=== PATIENT | male | born 2000 | race African-American/Black ===

== ENCOUNTER 2020-03-26 13:29 | Emergency (ER) | payer MEDICAID, OTHER ==
--- NOTE | 2020-03-26 14:52 | RAD ---
RIGHT ELBOW: 03/26/20 Four views. HISTORY: Injury. No fracture. No evidence of joint effusion. IMPRESSION: No acute findings. POS: OFF
== END 2020-03-26 15:47 | disposition home or self-care (01) ==
LOC: ERS 13:29
DX: M25.521 Pain in right elbow (principal); F90.9 Attention-deficit hyperactivity disorder, unspecified type; V64.6XXA Passenger in heavy transport vehicle injured in collision with heavy transport vehicle or bus in traffic accident, initial encounter

== ENCOUNTER 2021-01-29 22:03 | Inpatient (IN) | payer MEDICAID, SELFPAY ==
[2021-01-29] MEDS ORDERED: CEFAZOLIN 1 GM VIAL ONE ×2 (22:07→22:12)
[2021-01-29] MEDS ORDERED: Boostrix 0.5 ML (Tdap) VIAL ONE (22:20)
[2021-01-29] MEDS ORDERED: Morphine 4 MG/ML VIAL ONE ×2 (22:35→23:24)
[2021-01-29 22:36] LABS: #Basophils 0.1 thou/uL (0.0-0.2); #Eosinphils 0.2 thou/uL (0.0-0.7); #Lymphocytes 5.3 thou/uL (1.20-3.40); #Monocytes 1.1 thou/uL (0.11-0.59); #Neutrophils 4.2 thou/uL (1.40-6.50); %Basophils 1.1 % (0.0-1.0); %Eosinophils 1.9 % (0.0-10.0); %Lymphocytes 48.7 % (21.0-51.0); %Monocytes 9.9 % (0.0-10.0); %Neutrophils 38.4 % (42.0-75.0); Hemoglobin 15.4 g/dL (14.0-18.0); Mean Corpuscular HGB CONC 34.2 g/dL (32.0-36.0); Mean Corpuscular Hemoglobin 28.5 pg (27.0-31.0); Mean Corpuscular Volume 83.2 fL (78.0-98.0); Mean Platelet Volume 8.6 fL (7.4-10.4); Platelet Count 239 thou/uL (130-400); RBC Distribution Width 12.4 % (11.5-14.5); White Blood Cell (WBC) Count 10.8 thou/uL (4.8-10.8)
[2021-01-29 22:47] LABS: PTT 26.7 sec (22.9-36.1); Prothrombin Time 13.2 sec (12.0-14.7)
[2021-01-29 22:56] LABS: ALT (SGPT) 14 U/L (8-55); AST (SGOT) 17 U/L (5-34); Albumin 4.8 g/dL (3.5-5.0); Alkaline Phosphatase 84 U/L (40-110); Anion Gap 16 mmol/L (10-20); BUN (Urea Nitrogen) 8 mg/dL (8.9-20.6); Bilirubin, Total 0.7 mg/dL (0.2-1.2); Calc. Creatinine Clearance 0 mL/min (70-130); Calcium 9.7 mg/dL (7.8-10.44); Carbon Dioxide 25 mmol/L (22-29); Chloride 102 mmol/L (98-107); Globulin 3.3 g/dL (2.4-3.5); Glucose 107 mg/dL (70-105); Potassium 3.8 mmol/L (3.5-5.1); Protein, Total 8.1 g/dL (6.0-8.3); Sodium 139 mmol/L (136-145)
[2021-01-29] MEDS ORDERED: Dextrose 50% Abboject 50 ML SYRINGE SLOW IVP PRN (23:03)
[2021-01-29] MEDS ORDERED: hydrALAZINE 20 MG/ML VIAL SLOW IVP PRN (23:03)
[2021-01-29] MEDS ORDERED: Dextrose 5% in Water 1,000 ML IV PRN (23:03)
[2021-01-29] MEDS ORDERED: Ondansetron PF 4 MG/2 ML Vial IVP PRN (23:03)
[2021-01-29] MEDS ORDERED: traMADol HCl 50 MG TAB PO PRN (23:08)
[2021-01-29] MEDS ORDERED: Cyclobenzaprine 10 MG TAB PO PRN (23:08)
[2021-01-29] MEDS ORDERED: Acetaminophen 500 MG TAB ONE (23:25)
[2021-01-30] MEDS ORDERED: Tranexamic Acid 1,000 MG/10 ML VIAL ONE (00:02)
[2021-01-30 00:13] LABS: SARS-CoV-2 NAA Rapid Test Not Detected (NotDetected)
[2021-01-30] MEDS ORDERED: Lidocaine 1% w/Epinephrine 1:100K 20 ML VIAL ONE (00:28)
[2021-01-30] MEDS: Acetaminophen 500 MG TAB PO SCH ×4 (01:13→18:27)
[2021-01-30] MEDS: Morphine 4 MG/ML VIAL SLOW IVP PRN ×2 (01:14→05:00)
[2021-01-30] MEDS: Sodium Chloride 0.9% 1,000 ML IV SCH ×3 (01:20→18:03)
[2021-01-30 02:15] VITALS: BMI 23.1
[2021-01-30 02:49] LABS: Amphetamine Not Detected (NotDetected); Barbiturates Screen Not Detected (NotDetected); Benzodiazepine Screen Not Detected (NotDetected); Cocaine Metabolite Screen Not Detected (NotDetected); Methadone Not Detected (NotDetected); Methamphetamine Not Detected (NotDetected); Opiate Screen Detected (NotDetected); Oxycodone Screen Not Detected (NotDetected); Phencyclidine (PCP) Not Detected (NotDetected); THC/Cannabinoid Screen Detected (NotDetected); Tricyclic Screen Not Detected (NotDetected)
[2021-01-30] MEDS: ceFAZolin Sodium/D5W 2 GM in Premix Bag 1 BAG IVPB SCH ×3 (04:59→22:00)
[2021-01-30 06:28] LABS: #Eosinphils 0.1 thou/uL (0.0-0.7); #Lymphocytes 2.1 thou/uL (1.20-3.40); #Monocytes 1.1 thou/uL (0.11-0.59); #Neutrophils 6.1 thou/uL (1.40-6.50); %Basophils 0.5 % (0.0-1.0); %Eosinophils 0.8 % (0.0-10.0); %Lymphocytes 22.8 % (21.0-51.0); %Monocytes 11.3 % (0.0-10.0); %Neutrophils 64.6 % (42.0-75.0); Mean Corpuscular Hemoglobin 27.4 pg (27.0-31.0); Mean Corpuscular Volume 83.1 fL (78.0-98.0); Mean Platelet Volume 8.8 fL (7.4-10.4); Platelet Count 184 thou/uL (130-400); RBC Distribution Width 12.3 % (11.5-14.5); Red Blood Cell (RBC) Count 4.74 mill/uL (4.70-6.10); White Blood Cell (WBC) Count 9.4 thou/uL (4.8-10.8)
[2021-01-30 06:48] LABS: Anion Gap 14 mmol/L (10-20); BUN (Urea Nitrogen) 7 mg/dL (8.9-20.6); Calc. Creatinine Clearance 131 mL/min (70-130); Carbon Dioxide 25 mmol/L (22-29); Chloride 104 mmol/L (98-107); Glucose 100 mg/dL (70-105); Magnesium 1.8 mg/dL (1.6-2.6); Phosphorus 4.4 mg/dL (2.3-4.7); Sodium 139 mmol/L (136-145)
[2021-01-30] MEDS ORDERED: Clindamycin/D5W 900 MG in Premix Bag 1 BAG IVPB SCH (08:45)
[2021-01-30] MEDS ORDERED: Famotidine 20 MG TAB PO SCH (09:00)
[2021-01-30] MEDS ORDERED: Clindamycin/D5W 900 mg/50 ml Premix Bag ONE (09:11)
[2021-01-30] MEDS ORDERED: Fentanyl 250 MCG/5 ML VIAL ONE (10:33)
[2021-01-30] MEDS ORDERED: Mineral Oil Sterile 10 ML VIAL ONE (10:35)
[2021-01-30] MEDS ORDERED: Lidocaine 1% PF 5 ML VIAL ONE (11:09)
[2021-01-30] MEDS ORDERED: PROPOFOL 200 MG/20 ML VIAL ONE (11:09)
[2021-01-30] MEDS ORDERED: Ketorolac Tromethamine 30 MG/ML VIAL ONE (11:09)
[2021-01-30] MEDS ORDERED: Dexamethasone 20 MG/5 ML VIAL ONE (11:09)
[2021-01-30] MEDS ORDERED: Ondansetron PF 4 MG/2 ML Vial ONE (11:09)
[2021-01-30] MEDS ORDERED: HYDROmorphone 2 MG/ML VIAL SLOW IVP PRN (13:00)
[2021-01-30] MEDS ORDERED: Promethazine HCl 25 MG/ML VIAL IVPB PRN (13:00)
[2021-01-30] MEDS ORDERED: Meperidine HCl/PF 25 MG/ML VIAL SLOW IVP PRN (13:00)
[2021-01-30] MEDS ORDERED: Promethazine HCl 25 MG/ML VIAL IM PRN (13:00)
[2021-01-30] MEDS ORDERED: Ondansetron HCl/PF 4 MG/2 ML Vial IVP PRN (13:00)
[2021-01-30] MEDS ORDERED: Meperidine HCl/PF 25 MG/ML VIAL ONE (13:01)
[2021-01-30] MEDS ORDERED: Fentanyl 100 MCG/2 ML VIAL ONE (13:08)
[2021-01-30] MEDS ORDERED: Promethazine HCl 25 MG/ML VIAL ONE (13:18)
[2021-01-30] MEDS ORDERED: HYDROmorphone 0.5 MG/0.5 ML SYRINGE ONE ×2 (13:23→13:39)
[2021-01-30] MEDS ORDERED: CEFAZOLIN 2 GM in Premix Bag 1 BAG IVPB SCH (14:00)
[2021-01-30] MEDS: traMADol HCl 50 MG TAB PO PRN (14:48)
[2021-01-30] MEDS: Gabapentin 300 MG CAP PO SCH ×3 (14:49→22:00)
[2021-01-30] MEDS: Polyethylene Glycol 3350 17 GM Packet PO SCH (14:57)
[2021-01-30] MEDS: Senokot S 8.6-50 MG TAB PO SCH ×2 (14:57→22:00)
[2021-01-31] MEDS: Acetaminophen 500 MG TAB PO SCH ×4 (00:07→18:28)
[2021-01-31] MEDS: Morphine 4 MG/ML VIAL SLOW IVP PRN (00:07)
[2021-01-31] MEDS: ceFAZolin Sodium/D5W 2 GM in Premix Bag 1 BAG IVPB SCH (04:59)
[2021-01-31 06:05] LABS: #Lymphocytes 1.8 thou/uL (1.20-3.40); #Monocytes 1.1 thou/uL (0.11-0.59); %Basophils 0.2 % (0.0-1.0); %Eosinophils 0.1 % (0.0-10.0); %Lymphocytes 16.5 % (21.0-51.0); %Monocytes 10.3 % (0.0-10.0); %Neutrophils 72.9 % (42.0-75.0); Hemoglobin 11.2 g/dL (14.0-18.0); Mean Corpuscular HGB CONC 33.1 g/dL (32.0-36.0); Mean Corpuscular Hemoglobin 27.5 pg (27.0-31.0); Mean Corpuscular Volume 82.9 fL (78.0-98.0); Mean Platelet Volume 8.7 fL (7.4-10.4); Platelet Count 174 thou/uL (130-400); RBC Distribution Width 12.2 % (11.5-14.5); Red Blood Cell (RBC) Count 4.08 mill/uL (4.70-6.10); White Blood Cell (WBC) Count 10.9 thou/uL (4.8-10.8)
[2021-01-31 06:22] LABS: Anion Gap 11 mmol/L (10-20); BUN (Urea Nitrogen) 7 mg/dL (8.9-20.6); Calc. Creatinine Clearance 145 mL/min (70-130); Calcium 9.4 mg/dL (7.8-10.44); Carbon Dioxide 27 mmol/L (22-29); Chloride 103 mmol/L (98-107); Glucose 143 mg/dL (70-105); Magnesium 1.9 mg/dL (1.6-2.6); Phosphorus 4.6 mg/dL (2.3-4.7); Potassium 4.3 mmol/L (3.5-5.1); Sodium 137 mmol/L (136-145)
[2021-01-31] MEDS: traMADol HCl 50 MG TAB PO PRN (09:30)
[2021-01-31] MEDS: Gabapentin 300 MG CAP PO SCH ×3 (09:31→21:04)
[2021-01-31] MEDS: Senokot S 8.6-50 MG TAB PO SCH ×2 (09:34→21:04)
[2021-01-31] MEDS: Polyethylene Glycol 3350 17 GM Packet PO SCH (09:34)
[2021-01-31] MEDS ORDERED: traMADol HCl 50 MG TAB PO SCH (11:00)
[2021-01-31] MEDS ORDERED: Ibuprofen 200 MG TAB PO SCH (11:00)
[2021-01-31] MEDS ORDERED: Magnesium 2 GM/50 ML 2 GM in Premix Bag 1 BAG IVPB SCH (12:15)
[2021-01-31] MEDS: traMADol HCl 50 MG TAB PO SCH ×2 (15:50→21:01)
[2021-01-31] MEDS: Ibuprofen 200 MG TAB PO SCH (21:03)
[2021-02-01] MEDS: Enoxaparin Sodium 30 MG/0.3 ML SYRINGE SC SCH ×3 (00:24→08:59)
[2021-02-01] MEDS: Acetaminophen 500 MG TAB PO SCH ×3 (00:33→12:52)
[2021-02-01] MEDS: traMADol HCl 50 MG TAB PO SCH ×2 (02:12→09:00)
[2021-02-01] MEDS: Ibuprofen 200 MG TAB PO SCH ×2 (05:01→12:52)
[2021-02-01 07:01] LABS: #Eosinphils 0.1 thou/uL (0.0-0.7); #Lymphocytes 2.8 thou/uL (1.20-3.40); #Neutrophils 5.3 thou/uL (1.40-6.50); %Basophils 0.5 % (0.0-1.0); %Eosinophils 1.3 % (0.0-10.0); %Lymphocytes 30.4 % (21.0-51.0); %Monocytes 10.6 % (0.0-10.0); %Neutrophils 57.1 % (42.0-75.0); Mean Corpuscular HGB CONC 32.9 g/dL (32.0-36.0); Mean Corpuscular Hemoglobin 27.5 pg (27.0-31.0); Mean Corpuscular Volume 83.5 fL (78.0-98.0); Mean Platelet Volume 8.6 fL (7.4-10.4); Platelet Count 147 thou/uL (130-400); RBC Distribution Width 12.1 % (11.5-14.5); Red Blood Cell (RBC) Count 3.63 mill/uL (4.70-6.10); White Blood Cell (WBC) Count 9.3 thou/uL (4.8-10.8)
[2021-02-01] MEDS: Gabapentin 300 MG CAP PO SCH (09:00)
[2021-02-01] MEDS: Senokot S 8.6-50 MG TAB PO SCH (09:01)
[2021-02-01] MEDS: Polyethylene Glycol 3350 17 GM Packet PO SCH (09:01)
[2021-02-01 11:49] VITALS: BP 132/66; TEMP 99.6
== END 2021-02-01 13:15 | disposition home or self-care (01) | DRG 494 ==
LOC: ERS 22:03 → SURG A 01-30 00:56
PROVIDERS: ADMIT Surgery; ATTEND Surgery
PROC: 0QSG06Z Reposition Right Tibia with Intramedullary Internal Fixation Device, Open Approach (ICD-10-PCS; principal; 2021-01-30)
DX: S82.101B Unspecified fracture of upper end of right tibia, initial encounter for open fracture type I or II (principal); F17.210 Nicotine dependence, cigarettes, uncomplicated; S82.192B Other fracture of upper end of left tibia, initial encounter for open fracture type I or II; Z20.822 Contact with and (suspected) exposure to COVID-19; Z88.0 Allergy status to penicillin; Z88.1 Allergy status to other antibiotic agents; W32.0XXA Accidental handgun discharge, initial encounter
CPT/HCPCS: 0240U; 36415; 71045; 76000; 80048; 80053; 80306; 80307; 83735; 84100; 85025; 85610; 85730; 86850; 86900; 86901; 90715; C1713; G0390; J0690; J1170; J1650; J2175; J2270; J2550; J3010; J3370; J3475; J3490; J7050

== ENCOUNTER 2021-02-05 17:30 | Emergency (ER) | payer SELFPAY ==
[2021-02-05] MEDS ORDERED: Morphine 4 MG/ML VIAL ONE (18:44)
== END 2021-02-05 19:47 | disposition home or self-care (01) ==
LOC: ERS 17:30
DX: G89.18 Other acute postprocedural pain (principal); M79.605 Pain in left leg; R00.0 Tachycardia, unspecified; F17.200 Nicotine dependence, unspecified, uncomplicated; Z79.899 Other long term (current) drug therapy
CPT/HCPCS: 96372; 99284; J2270